=== PATIENT | female | born 1985 | race Caucasian/White ===

== ENCOUNTER 2019-01-30 15:01 | Emergency (ER) | payer SELFPAY ==
[~2019-01-30] VITALS: Ht 172.7 cm; Wt 90.7 kg
--- OUTSIDE RECORDS SUMMARY | 2019-01-30 15:07 | XMS REPORT | Continuity of Care Document ---
Author Organization Unknown Address Unknown Allergies There is no data. Medications There is no data. Problems There is no data. Procedures There is no data. Results There is no data. Encounters ACCT No. Visit Date/Time Discharge Status Pt. Type Provider Facility Loc./Unit Complaint [id number] 12/28/2018 10:20:00 12/28/2018 23:59:59 [facility]
--- NOTE | 2019-01-30 15:56 | ED Back Pain ---
General Chief Complaint: Back Problems Stated Complaint: BACK PAIN Nursing Triage Note: Pt ambulatory to ED reporting low right back pain described as a tingling sunburn on the inside. Pt had shingles on her left lower side of back 1 mo ago. Nursing Sepsis Screen: No Definite Risk History of Present Illness Date Seen by Provider: January 30, 2019 Time Seen by Provider: 15:35 Other Comments 33F recently dx'ed with left sided low back shingles here for several days of right low back point tenderness. Has no weakness, numbness, tingling, fever, chills, incontinence or retention of urine or stool, or history of cancer. The pain is worse with direct palpation and with certain movements. No abdominal pain. No dysuria or hematuria. No vomiting or change in bowel movements. Allergies and Home Medications Allergies Coded Allergies: hydrocodone (Unverified Adverse Reaction, Unknown, Vomiting, 01/30/19) Patient Home Medication List Home Medication List Reviewed: Yes Review of Systems Constitutional: no symptoms reported EENTM: no symptoms reported Respiratory: no symptoms reported Cardiovascular: no symptoms reported Gastrointestinal: no symptoms reported Genitourinary: no symptoms reported Musculoskeletal: see HPI Skin: no symptoms reported Psychiatric/Neurological: No Symptoms Reported Past Kgzwfps-Khaqmd-Bsnafb Hx Past Med/Social Hx: Reviewed Nursing Past Med/Soc Hx Patient Social History Alcohol Use: Denies Use Recreational Drug Use: No Smoking Status: Current Someday Smoker Type Used: Cigarettes 2nd Hand Smoke Exposure: Yes Recent Foreign Travel: No Contact w/Someone Who Travel: No Recent Infectious Disease Expo: No Recent Hopitalizations: No Physical Abuse: No Sexual Abuse: No Mistreated: No Fear: No Seasonal Allergies Seasonal Allergies: No Past Medical History Surgeries: Yes Tubal Ligation Cardiac: No Neurological: No : No Genitourinary: No Gastrointestinal: No Musculoskeletal: No Endocrine: No HEENT: No Cancer: No Psychosocial: No Integumentary: Yes (left side back shingles 1 mo ago) Recent Skin Changes Blood Disorders: No Physical Exam Vital Signs Vital Signs - First Documented 01/30/19 15:20 Temp 98.3 Pulse 111 Resp 20 B/P (MAP) 145/99 (114) Pulse Ox 100 O2 Delivery Room Air Capillary Refill : Less Than 3 Seconds Height, Weight, BMI Height: 5'8.00" Weight: 200lbs. oz. 90.465508bu; BMI Method:Stated General Appearance: No Apparent Distress HEENT: Moist Mucous Membranes Neck: Supple Cardiovascular: Regular Rate, Rhythm, Normal Peripheral Pulses Respiratory: Lungs Clear Gastrointestinal: Non Tender, Soft Back: Other (there is no midline tenderness. There is reproducible tenderness over the right PSIS without additional palpatory abnormalities. Normal inspection) Neurologic/Psychiatric: Alert, No Motor/Sensory Deficits; No Abnormal Gait Skin: Warm/Dry Progress/Results/Core Measures Results/Orders Vital Signs/I&O 01/30/19 01/30/19 15:20 15:59 Temp 98.3 97.7 Pulse 111 73 Resp 20 20 B/P (MAP) 145/99 (114) 105/69 (81) Pulse Ox 100 97 O2 Delivery Room Air Blood Pressure Mean: 114 Progress Progress Note : Progress Note Patient has point tenderness over the right PSIS. She has no abdominal pain, no other symptoms. She may have a minor strain or sprain. I do not feel that imaging or lab testing would global director air and climate change. I'm recommending a trial of topical analgesics such as lidocaine, and prompt follow-up with the primary care physician. She will return for any new or worsening symptoms. Departure Impression Primary Impression: Back pain Qualified Codes: M54.5 - Low back pain Disposition: 01 HOME, SELF-CARE Condition: Stable Departure-Patient Inst. Patient Instructions: Lumbar Muscle Strain (DC) RODOLFO PARIS DO January 30, 2019 15:56
== END 2019-01-30 15:59 | disposition home or self-care (01) ==
LOC: MERGE 15:04 → ER FS 15:04
DX: M54.5 Low back pain (principal); F17.210 Nicotine dependence, cigarettes, uncomplicated; Z88.5 Allergy status to narcotic agent; Z98.51 Tubal ligation status; Z86.19 Personal history of other infectious and parasitic diseases
CPT/HCPCS: 99281

== ENCOUNTER 2020-04-25 12:36 | Emergency (ER) | payer SELFPAY ==
[~2020-04-25] VITALS: Ht 170 cm; Wt 95.0 kg
--- NOTE | 2020-04-25 12:48 | ED General ---
General Stated Complaint: EPIGASTRIC PAIN History of Present Illness Date Seen by Provider: Apr 25, 2020 Time Seen by Provider: 12:47 Initial Comments Patient presenting to emergency department for evaluation of epigastric abdominal pain that has been an off and on issue for 10 years but she says it has been worsens last night. She says it is sharp and burning in epigastrium and radiates towards the right upper quadrant and causes her nausea and vomiting but the emesis is nonbloody nonbilious. She denies any prior abdominal surgeries but she says that she was recommended to have her gallbladder taken out 10 years ago but never did. She says the pain gets worse with eating shortly after ingesting. She is in no obvious distress with normal vital signs. Allergies and Home Medications Allergies Coded Allergies: hydrocodone (Unverified Adverse Reaction, Unknown, Vomiting, 01/31/19) Patient Home Medication List Home Medication List Reviewed: Yes Review of Systems Review of Systems Constitutional: no symptoms reported EENTM: no symptoms reported Respiratory: no symptoms reported Cardiovascular: no symptoms reported Gastrointestinal: abdominal pain, nausea, vomiting Genitourinary: no symptoms reported Musculoskeletal: no symptoms reported Skin: no symptoms reported Psychiatric/Neurological: No Symptoms Reported Past Jrafnzb-Spiatr-Tjerqh Hx Patient Social History Recent Foreign Travel: No Contact w/Someone Who Travel: No Physical Exam Vital Signs Vital Signs - First Documented 04/25/20 13:16 Temp 36.0 Pulse 105 Resp 18 B/P (MAP) 128/93 (105) Pulse Ox 99 O2 Delivery Room Air Capillary Refill : Height, Weight, BMI Height: '" Weight: lbs. oz. kg; BMI Method: General Appearance: No Apparent Distress, WD/WN HEENT: PERRL/EOMI Neck: Supple Respiratory: Lungs Clear, No Respiratory Distress Cardiovascular: Regular Rate, Rhythm Gastrointestinal: Soft, Tenderness (epigastrum and RUQ with no rebound or guarding) Extremity: Normal Capillary Refill Neurologic/Psychiatric: Alert, Oriented x3 Skin: Warm/Dry Progress/Results/Core Measures Suspected Sepsis SIRS Temperature: Pulse: Respiratory Rate: Laboratory Tests 04/25/20 13:00: White Blood Count 10.4 Blood Pressure / Mean: Laboratory Tests 04/25/20 13:00: Creatinine 0.67, Platelet Count 376, Total Bilirubin 0.3 Results/Orders Lab Results Laboratory Tests Test 04/25/20 13:00 04/25/20 13:40 Range/Units White Blood Count 10.4 4.3-11.0 10^3/uL Red Blood Count 4.81 4.35-5.85 10^6/uL Hemoglobin 13.8 11.5-16.0 G/DL Hematocrit 42 35-52 % Mean Corpuscular Volume 88 80-99 FL Mean Corpuscular Hemoglobin 29 25-34 PG Mean Corpuscular Hemoglobin Concent 33 32-36 G/DL Red Cell Distribution Width 14.1 10.0-14.5 % Platelet Count 376 130-400 10^3/uL Mean Platelet Volume 10.9 H 7.4-10.4 FL Neutrophils (%) (Auto) 64 42-75 % Lymphocytes (%) (Auto) 25 12-44 % Monocytes (%) (Auto) 7 0-12 % Eosinophils (%) (Auto) 4 0-10 % Basophils (%) (Auto) 0 0-10 % Neutrophils # (Auto) 6.6 1.8-7.8 X 10^3 Lymphocytes # (Auto) 2.6 1.0-4.0 X 10^3 Monocytes # (Auto) 0.7 0.0-1.0 X 10^3 Eosinophils # (Auto) 0.4 H 0.0-0.3 10^3/uL Basophils # (Auto) 0.0 0.0-0.1 10^3/uL Sodium Level 134 L 135-145 MMOL/L Potassium Level 4.6 3.6-5.0 MMOL/L Chloride Level 101 98-107 MMOL/L Carbon Dioxide Level 20 L 21-32 MMOL/L Anion Gap 13 5-14 MMOL/L Blood Urea Nitrogen 12 7-18 MG/DL Creatinine 0.67 0.60-1.30 MG/DL Estimat Glomerular Filtration Rate > 60 BUN/Creatinine Ratio 18 Glucose Level 92 70-105 MG/DL Calcium Level 9.6 8.5-10.1 MG/DL Corrected Calcium 9.4 8.5-10.1 MG/DL Total Bilirubin 0.3 0.1-1.0 MG/DL Aspartate Amino Transf (AST/SGOT) 14 5-34 U/L Alanine Aminotransferase (ALT/SGPT) 18 0-55 U/L Alkaline Phosphatase 93 40-136 U/L Total Protein 7.8 6.4-8.2 GM/DL Albumin 4.3 3.2-4.5 GM/DL Lipase 20 8-78 U/L Urine Color YELLOW Urine Clarity CLEAR Urine pH 5.5 5-9 Urine Specific Van >=1.030 1.016-1.022 Urine Protein NEGATIVE NEGATIVE Urine Glucose (UA) NEGATIVE NEGATIVE Urine Ketones NEGATIVE NEGATIVE Urine Nitrite NEGATIVE NEGATIVE Urine Bilirubin NEGATIVE NEGATIVE Urine Urobilinogen 0.2 < = 1.0 MG/DL Urine Leukocyte Esterase NEGATIVE NEGATIVE Urine RBC (Auto) NEGATIVE NEGATIVE Urine RBC NONE /HPF Urine WBC RARE /HPF Urine Squamous Epithelial Cells 5-10 /HPF Urine Crystals NONE /LPF Urine Bacteria TRACE /HPF Urine Casts NONE /LPF Urine Mucus NEGATIVE /LPF Urine Culture Indicated NO My Orders Orders - BRENNA STOKES DO Iv/Invasive Line Insertion .IV start (04/25/20 12:54) Cbc With Automated Diff (04/25/20 12:54) Comprehensive Metabolic Panel (04/25/20 12:54) Lipase (04/25/20 12:54) Ua Culture If Indicated (04/25/20 12:54) Ct Abdomen/Pelvis W (04/25/20 12:54) Ondansetron Injection (Zofran Injectio (04/25/20 13:00) Ns Iv 1000 Ml (Sodium Chloride 0.9%) (04/25/20 13:00) Antacid Suspension (Mylanta Suspension (04/25/20 13:00) Pantoprazole Injection (Protonix Injecti (04/25/20 13:00) Lidocaine 2% Viscous 15 Ml (Xylocaine Vi (04/25/20 13:00) Iohexol Injection (Omnipaque 350 Mg/Ml 1 (04/25/20 13:15) Received Contrast (Hold Metformin- Contr (04/25/20 13:15) Sodium Chloride Flush (Catheter Flush Sy (04/25/20 13:15) Ns (Ivpb) (Sodium Chloride 0.9% Ivpb Bag (04/25/20 13:15) Urine Bedside (04/25/20 13:48) Medications Given in ED Current Medications Medications Dose Ordered Sig/Miguel Route Start Time Stop Time Status Last Admin Dose Admin Al Hydrox/Mg Hydrox/Simethicone 30 ml ONCE ONCE PO 04/25/20 13:00 04/25/20 13:01 DC 04/25/20 13:08 30 ML Iohexol 100 ml ONCE ONCE IV 04/25/20 13:15 04/25/20 13:16 DC 04/25/20 13:51 100 ML Lidocaine HCl 5 ml ONCE ONCE PO 04/25/20 13:00 04/25/20 13:01 DC 04/25/20 13:08 5 ML Ondansetron HCl 4 mg ONCE ONCE IVP 04/25/20 13:00 04/25/20 13:01 DC 04/25/20 13:08 4 MG Pantoprazole 40 mg ONCE ONCE IV 04/25/20 13:00 04/25/20 13:01 DC 04/25/20 13:08 40 MG Sodium Chloride 10 ml NEEDED PRN IV 04/25/20 13:15 04/25/20 13:51 10 ML Vital Signs/I&O 04/25/20 13:16 Temp 36.0 Pulse 105 Resp 18 B/P (MAP) 128/93 (105) Pulse Ox 99 O2 Delivery Room Air Capillary Refill : Progress Note : Progress Note Symptoms are most likely gastritis or ulcer my opinion but certainly gallbladder pathology is a possibility as well. I will check labs imaging treat symptoms and reassess. Workup is negative for acute process. Her pain improved significantly and her repeat abdominal exam is benign. I told her I suspect this could be gastritis or ulcer and starting a PPI be a good idea and I also recommended following up primary care provider and she may need GI referral for further workup. Patient will be discharged in stable condition told to follow-up and come back to the ED sooner with worsening pain fevers vomiting or other general concerns. Patient aware and agreeable with plan and verbalized understanding of the above instructions. Departure Impression Primary Impression: Abdominal pain Qualified Codes: R10.13 - Epigastric pain Additional Impression: Nausea and vomiting Disposition: HOME, SELF-CARE Condition: Stable Departure-Patient Inst. Referrals: [facility] (PCP/Family) Primary Care Physician Patient Instructions: Gastritis (DC) Add. Discharge Instructions: Take Tums or maalox for immediate relief. Avoid nsaids. Follow with a PCP. dining service supervisor OTC prilosc 20mg and take once daily in morning. BRENNA STOKES DO Apr 25, 2020 12:48
[2020-04-25] MEDS ORDERED: ANTACID SUSP 30 ML UDC (MYLANTA) PO ONE (13:00)
[2020-04-25] MEDS ORDERED: HALOPERIDOL 5 MG/ML (HALDOL) VIAL IV ONE (13:00)
[2020-04-25] MEDS ORDERED: LIDOCAINE 2% VISCOUS 15 ML UDC PO ONE (13:00)
[2020-04-25] MEDS ORDERED: NS IV 1000 ML 1,000 ML IV SCH (13:00)
[2020-04-25] MEDS ORDERED: ONDANSETRON 4 MG/2 ML (SDV) Z0FRAN IVP ONE (13:00)
[2020-04-25] MEDS ORDERED: PANTOPRAZOLE 40 MG (PROTONIX) VIAL IV ONE (13:00)
[2020-04-25 13:08] LABS: WHITE BLOOD COUNT 10.4 10^3/uL (4.3-11.0)
[2020-04-25 13:09] LABS: BASOPHILS % (AUTO) 0 % (0-10); EOSINOPHILS # (AUTO) 0.4 10^3/uL (0.0-0.3); EOSINOPHILS % (AUTO) 4 % (0-10); HEMATOCRIT 42 % (35-52); HEMOGLOBIN 13.8 G/DL (11.5-16.0); LYMPHOCYTES # (AUTO) 2.6 X 10^3 (1.0-4.0); LYMPHOCYTES % (AUTO) 25 % (12-44); MEAN CORPUSCULAR HEMOGLOBIN 29 PG (25-34); MEAN CORPUSCULAR HGB CONC 33 G/DL (32-36); MEAN CORPUSCULAR VOLUME 88 FL (80-99); MEAN PLATELET VOLUME 10.9 FL (7.4-10.4); MONOCYTES # (AUTO) 0.7 X 10^3 (0.0-1.0); MONOCYTES % (AUTO) 7 % (0-12); NEUTROPHILS # (AUTO) 6.6 X 10^3 (1.8-7.8); NEUTROPHILS % (AUTO) 64 % (42-75); PLATELET COUNT 376 10^3/uL (130-400); RED CELL DISTRIBUTION WIDTH 14.1 % (10.0-14.5)
[2020-04-25] MEDS ORDERED: NS 100 ML (IVPB) BAG IV ONE (13:15)
[2020-04-25] MEDS ORDERED: HOLD METFORMIN - RECEIVED CONTRAST 20 ML VIAL IV SCH (13:15)
[2020-04-25] MEDS ORDERED: IOHEXOL 350 MG/ML 100 ML (OMNIPAQUE 350) VIAL IV ONE (13:15)
[2020-04-25] MEDS ORDERED: CATHETER FLUSH 10 ML SYR IV PRN (13:15)
--- OUTSIDE RECORDS SUMMARY | 2020-04-25 13:22 | XMS REPORT | Continuity of Care Document ---
Author Organization Unknown Address Unknown Phone Unavailable Allergies Active Description Code Type Severity Reaction Onset Reported/Identified Relationship to Patient Clinical Status Yes hydrocodone [id number] Drug Aller gy Unknown Vomiting 01/30/2019 Yes hydrocodone [id number] Drug Aller gy Unknown Vomiting 01/30/2019 Medications There is no data. Problems Date Dx Coded Attending Type Code Diagnosis Diagnosed By 01/30/2019 Ot F17.210 NI COTINE DEPENDENCE, CIGARETTES, UNCOMPL 01/30/2019 Ot M54.5 LOW BACK PAIN 01/30/2019 Ot Z86.19 PER BLAIRE HISTORY OF OTHER INFECTIOUS AND 01/30/2019 Ot Z88.5 DAVID RGY STATUS TO NARCOTIC AGENT STATUS 01/30/2019 Ot Z98.51 TUB AL LIGATION STATUS 02/02/2019 Ot F17.210 NI COTINE DEPENDENCE, CIGARETTES, UNCOMPL 02/02/2019 Ot M54.5 LOW BACK PAIN 02/02/2019 Ot Z86.19 PER BLAIRE HISTORY OF OTHER INFECTIOUS AND 02/02/2019 Ot Z88.5 DAVID RGY STATUS TO NARCOTIC AGENT STATUS 02/02/2019 Ot Z98.51 TUB AL LIGATION STATUS Procedures There is no data. Results There is no data. Encounters ACCT No. Visit Date/Time Discharge Status Pt. Type Provider Facility Loc./Unit Complaint [id number] 04/25/2019 15:15:00 04/25/2019 23:59:5 9 CLS Outpatient [facility] [id number] 01/30/2019 15:04:00 019 15:59:00 DIS Emergency RODOLFO PARIS DO [facility] ER FS BACK PAIN [id number] 04/25/2020 12:38:[address] Emergency BRENNA STOKES DO [facility] ER FS EPIGASTRIC PAIN [id number] 01/31/2019 08:35:00 Document Registration
[2020-04-25 13:31] LABS: ALANINE AMINOTRANSFERASE 18 U/L (0-55); ALBUMIN 4.3 GM/DL (3.2-4.5); ALKALINE PHOSPHATASE 93 U/L (40-136); BILIRUBIN,TOTAL 0.3 MG/DL (0.1-1.0); BUN/CREATININE RATIO 18; CALCIUM 9.6 MG/DL (8.5-10.1); CARBON DIOXIDE 20 MMOL/L (21-32); CHLORIDE 101 MMOL/L (98-107); CREATININE SERUM 0.67 MG/DL (0.60-1.30); GFR ESTIMATED > 60; GLUCOSE 92 MG/DL (70-105); POTASSIUM 4.6 MMOL/L (3.6-5.0); SODIUM 134 MMOL/L (135-145); TOTAL PROTEIN 7.8 GM/DL (6.4-8.2)
[2020-04-25 13:32] LABS: LIPASE 20 U/L (8-78)
[2020-04-25 13:54] LABS: BILIRUBIN,URINE NEGATIVE (NEGATIVE); CLARITY,URINE CLEAR; COLOR,URINE YELLOW; GLUCOSE, URINE (UA) NEGATIVE (NEGATIVE); KETONES,URINE NEGATIVE (NEGATIVE); LEUKOCYTE ESTERASE ,URINE NEGATIVE (NEGATIVE); NITRITE,URINE NEGATIVE (NEGATIVE); PH,URINE 5.5 (5-9); PROTEIN,URINE NEGATIVE (NEGATIVE)
[2020-04-25 13:55] LABS: BACTERIA,URINE TRACE /HPF; WBC,URINE RARE /HPF
--- NOTE | 2020-04-25 14:11 | Diagnostic Imaging Report ---
PROCEDURE: CT abdomen and pelvis with contrast. TECHNIQUE: Multiple contiguous axial images were obtained through the abdomen and pelvis after administration of intravenous contrast. Auto Exposure Controls were utilized during the CT exam to meet ALARA standards for radiation dose reduction. INDICATION: Upper abdominal pain. COMPARISON: No prior studies are available for comparison. FINDINGS: The lung bases are clear. The liver demonstrates generalized low density consistent with hepatic steatosis. No discrete liver mass is detected. The gallbladder is unremarkable. No biliary ductal dilatation is identified. The pancreas and spleen are unremarkable. No adrenal mass is detected. Kidneys are unremarkable. Aorta is nonaneurysmal. There is moderate amount of fluid throughout the ascending and transverse colon. The descending colon is decompressed. Small bowel loops are normal caliber. Appendix is visualized and unremarkable. The bladder is unremarkable. The uterus and ovaries are unremarkable apart from a small cyst in the left ovary measuring 15 mm. Bony structures are unremarkable. IMPRESSION: 1. Hepatic steatosis. 2. No CT evidence of acute appendicitis. There is some fluid-filled colon perhaps owing to diarrhea. No significant wall thickening, pneumatosis, or free air is identified. There is no evidence of bowel obstruction. Dictated by: Dictated on workstation # [id number]
[2020-04-25] MEDS ORDERED: ONDA4TAB11 PO (14:34)
[2020-04-25 14:38] VITALS: BP 118/72
== END 2020-04-25 14:35 | disposition home or self-care (01) ==
LOC: EDUNIT# 12:36 → ER FS 12:38
DX: R10.13 Epigastric pain (principal); R11.2 Nausea with vomiting, unspecified; Z88.5 Allergy status to narcotic agent
CPT/HCPCS: 36415; 74177; 80053; 81000; 83690; 84703; 85025; 96374; 96375

== ENCOUNTER 2021-07-05 19:50 | Emergency (ER) | payer SELFPAY ==
[~2021-07-05] VITALS: Ht 172.7 cm; Wt 101.3 kg
[~2021-07-05 19:50] MED LIST: ONDA4TAB11 PO
--- NOTE | 2021-07-05 20:23 | ED Cough/URI ---
General Stated Complaint: COUGH,CP Source: patient Exam Limitations: no limitations History of Present Illness Date Seen by Provider: Jul 05, 2021 Time Seen by Provider: 20:23 Initial Comments cough and shortness of air with exertion intermittently for the past 2 days. Associated chest tightness. no fever, no nausea or vomiting. Normal appetite. Usually has problems with allergies this time of year and develops a cough. No signif PMHx, + smoker Allergies and Home Medications Allergies Coded Allergies: hydrocodone (Unverified Adverse Reaction, Unknown, Vomiting, 01/31/19) Patient Home Medication List Home Medication List Reviewed: Yes Albuterol Sulfate (Proair Hfa) 1 Puff Puff, 2 PUFF IH Q4H Prescribed by: MARKO MANNING on 07/05/212113 Ondansetron (Ondansetron Odt) 4 Mg Tab.rapdis, 4 MG PO TID PRN for NAUSEA/VOMITING-1ST LINE Prescribed by: BRENNA STOKES on 04/25/20 143 Prednisone (Prednisone) 50 Mg Tab, 50 MG PO DAILY Prescribed by: MARKO MANNING on 07/05/212113 Review of Systems Review of Systems Constitutional: No chills, No fever; malaise; No weakness EENTM: hoarseness, nose congestion, throat pain; No hearing loss, No ear pain, No mouth pain, No mouth swelling, No throat swelling Respiratory: cough, dyspnea on exertion; No hemoptysis; phlegm; No wheezing Cardiovascular: chest pain Gastrointestinal: No abdominal pain, No loss of appetite, No nausea, No vomiting Musculoskeletal: No joint pain, No muscle pain, No muscle stiffness Skin: No change in color Psychiatric/Neurological: Denies Headache, Denies Weakness Past Nccaluo-Kcjpho-Yapcnh Hx Patient Social History Tobacco Use?: Yes Seasonal Allergies Seasonal Allergies: No Past Medical History Surgeries: Yes Tubal Ligation Respiratory: No Cardiac: No Neurological: No Genitourinary: No Gastrointestinal: No Musculoskeletal: No Endocrine: No HEENT: No Cancer: No Psychosocial: No Integumentary: No Blood Disorders: No Physical Exam Vital Signs - First Documented 07/05/21 20:38 Temp 36.4 Pulse 123 Resp 24 B/P (MAP) 124/88 (100) Pulse Ox 98 O2 Delivery Room Air Capillary Refill : Height: '" Weight: lbs. oz. kg; 32.00 BMI Method: General Appearance: WD/WN, no apparent distress HEENT: PERRL/EOMI, normal ENT inspection Neck: non-tender, supple Respiratory: chest non-tender, lungs clear, normal breath sounds, no respiratory distress, no accessory muscle use Cardiovascular: regular rate, rhythm, no edema, no JVD Gastrointestinal: normal bowel sounds, non tender, soft Extremities: normal range of motion, non-tender Neurologic/Psychiatric: no motor/sensory deficits, alert, normal mood/affect Skin: normal color, warm/dry Progress/Results/Core Measures Suspected Sepsis SIRS Temperature: Pulse: Respiratory Rate: Laboratory Tests 07/05/21 20:20: White Blood Count 10.8 Blood Pressure / Mean: Laboratory Tests 07/05/21 20:20: Creatinine 0.76, Platelet Count 446H, Total Bilirubin 0.6 Results/Orders Lab Results Laboratory Tests Test 07/05/21 20:20 Range/Units White Blood Count 10.8 4.3-11.0 10^3/uL Red Blood Count 4.63 3.80-5.11 10^6/uL Hemoglobin 13.1 11.5-16.0 g/dL Hematocrit 39 35-52 % Mean Corpuscular Volume 85 80-99 fL Mean Corpuscular Hemoglobin 28 25-34 pg Mean Corpuscular Hemoglobin Concent 33 32-36 g/dL Red Cell Distribution Width 14.2 10.0-14.5 % Platelet Count 446 H 130-400 10^3/uL Mean Platelet Volume 10.9 9.0-12.2 fL Immature Granulocyte % (Auto) 0 % Neutrophils (%) (Auto) 62 42-75 % Lymphocytes (%) (Auto) 24 12-44 % Monocytes (%) (Auto) 10 0-12 % Eosinophils (%) (Auto) 4 0-10 % Basophils (%) (Auto) 1 0-10 % Neutrophils # (Auto) 6.6 1.8-7.8 X 10^3 Lymphocytes # (Auto) 2.6 1.0-4.0 X 10^3 Monocytes # (Auto) 1.1 H 0.0-1.0 X 10^3 Eosinophils # (Auto) 0.4 H 0.0-0.3 10^3/uL Basophils # (Auto) 0.1 0.0-0.1 10^3/uL Immature Granulocyte # (Auto) 0.0 0.0-0.1 10^3/uL Sodium Level 138 135-145 MMOL/L Potassium Level 3.8 3.6-5.0 MMOL/L Chloride Level 102 98-107 MMOL/L Carbon Dioxide Level 21 21-32 MMOL/L Anion Gap 15 H 5-14 MMOL/L Blood Urea Nitrogen 14 7-18 MG/DL Creatinine 0.76 0.60-1.30 MG/DL Estimat Glomerular Filtration Rate 86 BUN/Creatinine Ratio 18 Glucose Level 102 70-105 MG/DL Calcium Level 9.6 8.5-10.1 MG/DL Corrected Calcium 8.5-10.1 MG/DL Total Bilirubin 0.6 0.1-1.0 MG/DL Aspartate Amino Transf (AST/SGOT) 44 H 5-34 U/L Alanine Aminotransferase (ALT/SGPT) 41 0-55 U/L Alkaline Phosphatase 97 40-136 U/L Troponin I < 0.30 <0.30 NG/ML C-Reactive Protein 1.19 H <0.50 MG/DL Total Protein 8.5 H 6.4-8.2 GM/DL Albumin 4.6 H 3.2-4.5 GM/DL My Orders Orders - ROVENSTINEMARKO DO Ed Iv/Invasive Line Start (07/05/21 20:26) Troponin I Fs (07/05/21 20:26) Chest 1 View Ap/Pa Only (07/05/21 20:26) Ekg Tracing (07/05/21 20:) Cbc With Automated Diff (07/05/21 20:) Comprehensive Metabolic Panel (07/05/21 20:26) Crp Fs (07/05/21 20:26) Aspirin Chewable Tablet (Baby Aspirin Ch (07/05/21 20:30) Ns Iv 1000 Ml (Sodium Chloride 0.9%) (07/05/21 20:30) Albuterol/Ipra Inhalation Soln (Duoneb I (07/05/21 21:15) Prednisone Tablet (Deltasone Tablet) (07/05/21 21:15) Svn Small Volume Nebulizer (07/05/21 21:12) Medications Given in ED Current Medications Medications Dose Ordered Sig/Miguel Route Start Time Stop Time Status Last Admin Dose Admin Aspirin 324 mg ONCE ONCE PO 07/05/21 20:30 07/05/21 20:31 DC 07/05/21 20:33 324 MG Vital Signs/I&O 07/05/21 20:38 Temp 36.4 Pulse 123 Resp 24 B/P (MAP) 124/88 (100) Pulse Ox 98 O2 Delivery Room Air Capillary Refill : ECG Initial ECG Impression Date: Jul 05, 2021 Initial ECG Impression Time: 20:35 Initial ECG Rate: 109 Initial ECG Rhythm: S.Tach Initial ECG Intervals: Normal Initial ECG Impression: Normal Initial ECG Comparisson: No Previous ECG Available Diagnostic Imaging Diagonstic Imaging: Xray Plain Films/CT/US/NM/MRI: chest Comments Date of Exam:07/05/21 CHEST 1 VIEW AP/PA ONLY INDICATION: cough and soa COMPARISON: None FINDINGS: Single frontal view of the chest demonstrates normal heart size and pulmonary vascularity. The lungs are well aerated and clear. No large pleural effusion or pneumothorax is seen. The visualized osseous structures show no acute abnormalities. IMPRESSION: 1. No acute cardiopulmonary process. Dictated on workstation # [id number] Dict: 07/05/212042 Trans: 07/05/212052 [id number] Interpreted by: OTILIA HERNANDES MD Electronically signed by: Departure Impression Primary Impression: Bronchitis Disposition: 01 HOME, SELF-CARE Condition: Stable Departure-Patient Inst. Decision time for Depature: 21:13 Referrals: [facility] (PCP/Family) Primary Care Physician Patient Instructions: Acute Bronchitis, Adult (DC) Add. Discharge Instructions: Follow up with your PCP in 1 week if not improving, sooner if worse Scripts Prednisone (Prednisone) 50 Mg Tab 50 MG PO DAILY, #5 TAB Prov: MARKO MANNING DO 07/05/21 Albuterol Sulfate (PROAIR HFA) 1 Puff Puff 2 PUFF IH Q4H, #1 PUFF 1 PUFF = 90 MCG Prov: MARKO MANNING DO 07/05/21 MARKO MANNING DO Jul 05, 2021 20:23
[2021-07-05] MEDS ORDERED: NS IV 1000 ML 1,000 ML IV SCH (20:30)
[2021-07-05] MEDS ORDERED: ASPIRIN 81 MG CHEW (CHILDREN'S ASA) PO ONE (20:30)
[2021-07-05 20:31] LABS: BASOPHILS # (AUTO) 0.1 10^3/uL (0.0-0.1); BASOPHILS % (AUTO) 1 % (0-10); EOSINOPHILS # (AUTO) 0.4 10^3/uL (0.0-0.3); EOSINOPHILS % (AUTO) 4 % (0-10); HEMATOCRIT 39 % (35-52); HEMOGLOBIN 13.1 g/dL (11.5-16.0); LYMPHOCYTES # (AUTO) 2.6 X 10^3 (1.0-4.0); LYMPHOCYTES % (AUTO) 24 % (12-44); MEAN CORPUSCULAR HEMOGLOBIN 28 pg (25-34); MEAN CORPUSCULAR HGB CONC 33 g/dL (32-36); MEAN CORPUSCULAR VOLUME 85 fL (80-99); MEAN PLATELET VOLUME 10.9 fL (9.0-12.2); MONOCYTES # (AUTO) 1.1 X 10^3 (0.0-1.0); MONOCYTES % (AUTO) 10 % (0-12); NEUTROPHILS # (AUTO) 6.6 X 10^3 (1.8-7.8); NEUTROPHILS % (AUTO) 62 % (42-75); PLATELET COUNT 446 10^3/uL (130-400); WHITE BLOOD COUNT 10.8 10^3/uL (4.3-11.0)
[2021-07-05 20:49] LABS: ALANINE AMINOTRANSFERASE 41 U/L (0-55); ALBUMIN 4.6 GM/DL (3.2-4.5); ALKALINE PHOSPHATASE 97 U/L (40-136); BILIRUBIN,TOTAL 0.6 MG/DL (0.1-1.0); BUN/CREATININE RATIO 18; CALCIUM 9.6 MG/DL (8.5-10.1); CARBON DIOXIDE 21 MMOL/L (21-32); CHLORIDE 102 MMOL/L (98-107); CREATININE SERUM 0.76 MG/DL (0.60-1.30); GFR ESTIMATED 86; GLUCOSE 102 MG/DL (70-105); POTASSIUM 3.8 MMOL/L (3.6-5.0); SODIUM 138 MMOL/L (135-145); TOTAL PROTEIN 8.5 GM/DL (6.4-8.2)
--- NOTE | 2021-07-05 20:54 | Diagnostic Imaging Report ---
INDICATION: cough and soa COMPARISON: None FINDINGS: Single frontal view of the chest demonstrates normal heart size and pulmonary vascularity. The lungs are well aerated and clear. No large pleural effusion or pneumothorax is seen. The visualized osseous structures show no acute abnormalities. IMPRESSION: 1. No acute cardiopulmonary process. Dictated by: Dictated on workstation # [id number]
[2021-07-05] MEDS ORDERED: RT-ALBUINH IH (21:14)
[2021-07-05] MEDS ORDERED: PRD50T PO (21:14)
[2021-07-05] MEDS ORDERED: RT-ALBUTEROL/IPRATROPIUM 3 ML (DUONEB) VIAL INH ONE (21:15)
[2021-07-05] MEDS ORDERED: predniSONE 20 MG TAB PO ONE (21:15)
[2021-07-05] MEDS ORDERED: RT-ALBUTEROL/IPRATROPIUM 3 ML (DUONEB) VIAL ONE (21:29)
[2021-07-05] MEDS ORDERED: predniSONE 20 MG TAB ONE (21:29)
[2021-07-05 22:15] VITALS: BP 114/85
== END 2021-07-05 22:14 | disposition home or self-care (01) ==
LOC: EDUNIT# 19:50 → ER FS 19:51
DX: J40 Bronchitis, not specified as acute or chronic (principal); Z72.0 Tobacco use
CPT/HCPCS: 36415; 71045; 80053; 84484; 85025; 86141; 93005